=== PATIENT | female | born 1935 | race Caucasian/White ===

== ENCOUNTER → 2017-04-29 | Outpatient (CLI) | payer MEDICARE | END | disposition home or self-care (01) | LOC: RAD 13:04 | DX: Z13.820 Encounter for screening for osteoporosis (principal); N95.9 Unspecified menopausal and perimenopausal disorder; M48.56XA Collapsed vertebra, not elsewhere classified, lumbar region, initial encounter for fracture ==

== ENCOUNTER → 2017-07-22 | Outpatient (CLI) | payer MEDICARE ==
[2017-07-15 13:36] VITALS: BP 124/74
[~2017-07-22] MED LIST: CYMBALTA20 M1 PO; Synthroid,Levo50 MCG PO
[2017-07-22 13:36] VITALS: BP 132/71
== END | disposition home or self-care (01) ==
LOC: INJECTION 07-15 03:10
DX: M81.0 Age-related osteoporosis without current pathological fracture (principal)

== ENCOUNTER → 2018-01-27 | Outpatient (CLI) | payer MEDICARE ==
[~2018-01-27] MED LIST changes: +FOLGARD TABLET1 EACH PO; +REMERON15 M2 PO
[2018-01-27 13:17] VITALS: BP 138/62
== END | disposition home or self-care (01) ==
LOC: INJECTION 01-13 13:30
DX: M81.0 Age-related osteoporosis without current pathological fracture (principal)

== ENCOUNTER 2018-03-26 22:38 | Inpatient (IN) | payer MEDICARE ==
[~2018-03-26] VITALS: Ht 153.6 cm; Wt 48.4 kg
--- NOTE | ~2018-03-26 | PR ---
[place], [place] PROGRESS NOTE NAME: SHERIDAN ZUÑIGA UNIT #: [id number] ROOM: 316 DOCTOR: VINH DE LOS SANTOS DO BIRTHDATE: [birth year] DOS: 03/31/2018 CHIEF COMPLAINT: "I have pain in my shoulders." SUMMARY OF VISIT: Patient is an 82-year-old white female who was admitted to the [facility] due to increased depression and thoughts of suicide with voice a plan act while living at [facility]. Patient is currently on hospital day #5 with improved mood today. Today, patient was interviewed in the dining room. She was eating breakfast at that time. She did not appear to be in any form of distress. When asked about her sleep and appetite, she said both have improved. No signs of anxiety were noted during our encounter. She did complain of having shoulder pain and back pain. She states at home she usually uses a chair with upper back support and she was requesting assistance with her back pain. We reassured the patient that we would let PT know regarding her musculoskeletal pain and she voiced understanding. She did not appear as anxious today as she did yesterday. No thoughts of suicidal ideation were voiced by the patient. No signs of psychosis or deya were noted. MENTAL STATUS EXAMINATION: The patient is alert and oriented to self and place. Her mood is trending towards euthymic. Her speech is organized, purposeful and appropriate. Her affect is more appropriate today. Sleep and appetite have normalized. She does continue to have gaps in her short term memory. The patient did not appear as anxious or as depressed today compared to yesterday. She reports sleeping well. No thoughts of suicidal ideation or harm to others were voiced. No signs of deya or hypomania. PLAN: 1. We have increased Namenda to 10 mg b.i.d. 2. Disposition: Patient to be discharged back to [facility] pending on medical and psychiatric status at that time. 3. PT was informed of the patient's shoulder pain. They relayed to me that she did participate in PT this morning. They did note that she was sleepy at that time since she had just woken up; however, they reassured me that no exercises were done that could have aggravated musculoskeletal support. They recommended that we place a pillow under her knees to alleviate her back pain. They stated that they would address this issue further in her next session. They stated they would call with further recommendations at that time. We will continue to engage the patient in individual and ho milieu activity, returning to the least restrictive environment when psychiatrically stable. ADDENDUM BY DR. OLEA 04/09/18 11:15 AM: Above note reviewed. Agree with observations, recommendations, and overall treatment plan. [place], [place] PROGRESS NOTE NAME: SHERIDAN ZUÑIGA UNIT #: [id number] ROOM: [facility] DOCTOR: VINH DE LOS SANTOS DO BIRTHDATE: [birth year] Vinh De Los Santos DO PATY OLEA MD CM:PNABDIEL [id number] T: VINH DE LOS SANTOS DO 04/09/18 1407 RONI [email or web address]
--- NOTE | ~2018-03-26 | PR ---
[place], [place] PROGRESS NOTE NAME: SHERIDAN ZUÑIGA UNIT #: [id number] ROOM: 316 DOCTOR: PATY OLEA MD BIRTHDATE: [birth year] DOS: 04/02/2018 CHIEF COMPLAINT: "Good morning." SUMMARY OF THE VISIT: The patient was interviewed as she was eating cereal in the dining area. She engaged in brief superficial conversation. When I did tell her that she would be more than likely leaving the hospital to return to [facility], she looked rather perplexed and bewildered and did state [facility] with a very questionable tone in her voice. She has been more pleasant and bright. There has been little to no agitation or aggression. There has been little to no mood lability that was present upon admission. She has been sleeping well at night with the current medication regimen and has been eating better. MENTAL STATUS: She is alert and oriented to person, possibly place, not time. Mood does seem to be trending towards euthymia. Affect is more appropriate. There is no deya, hypomania or psychosis. She does process slowly and short term memory remains poor. PLAN: I will renew her p.r.n. Ativan in case she requires intervention. Otherwise, I will maintain her Exelon at 13.3 mg a day, Namenda at 10 mg twice daily, and her Remeron at 15 mg at bedtime to combat the depression. PATY OLEA MD CM:PNTRANS [id number] PATY OLEA MD 04/02/18 2330 interface
--- NOTE | ~2018-03-26 | PR ---
[place], [place] PROGRESS NOTE NAME: SHERIDAN ZUÑIGA UNIT #: [id number] ROOM: 316 DOCTOR: VINH DE LOS SANTOS DO BIRTHDATE: [birth year] DOS: 04/01/2018 CHIEF COMPLAINT: "It's 1900." SUBJECTIVE: Patient is an 82-year-old white female who was admitted to the [facility] due to increased depression and suicidal thoughts with a voice plan while living at [facility]. She is currently on day #6 with improved mood today. She was interviewed this morning in the dining room. Per nursing staff, the patient slept 7 hours. The patient was later interviewed in her room and when asked if she knew the date, she stated that it was 1900. She appeared to be a little confused. Of note, yesterday, the patient was complaining of back pain; however, she did not voice this concern this morning. She did undergo an x-ray of the thoracic spine. 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 Today, the patient appeared to be slightly confused; however, she readily engaged in conversation and she did not voice any concerns. She appeared to be guarded. MENTAL STATUS EXAMINATION: The patient is alert and oriented to self and place. She was unable to accurately state the year. When asked, she said it was "1900." Her affect remains to be guarded. She appears slightly anxious. She does state that her sleep and appetite have improved overall during her admission. She does continue to have gaps in her short term memory, which has continued to be problematic. The patient did not voice any thoughts of suicidal ideation or harm towards others. No signs of deya or hypomania. No signs of auditory or visual hallucinations. PLAN: 1. No changes to be made to psychotropic regimen as the patient seems to be tolerating this well. Sleep and appetite have continued to normalize. 2. The patient's musculoskeletal concerns are being currently addressed by the internal medicine hospitalist team. Thoracic spine x-rays from 03/31/2018 were unremarkable. They were significant; however, for mid to upper thoracic kyphosis with decreased bone mineral density and diffuse degenerative changes compared to previous study and anterior compression deformity at T5 was also noted; however, PT has continued to be working with the patient and she did not voice any musculoskeletal concerns this morning. 3. Disposition. The patient is to be discharged April 03, back to [facility]. Until then, we will continue to engage the patient in individual and ho milieu activity, returning to the least restrictive environment when psychiatrically stable. ADDENDUM BY DR. OLEA 04/09/18 11:15 AM: Above note reviewed. Agree with observations, recommendations, and overall treatment plan. [place], [place] PROGRESS NOTE NAME: SHERIDAN ZUÑIGA UNIT #: [id number] ROOM: [facility] DOCTOR: VINH DE LOS SANTOS DO BIRTHDATE: [birth year] Vinh De Los Santos DO PATY OLEA MD CM:PNTRANS [id number] T: VINH DE LOS SANTOS DO 04/09/18 1408 RONI [email or web address].[email or web address]
--- NOTE | ~2018-03-26 | WRIGHTHP ---
[place], [place] PATIENT HISTORY AND PHYSICAL EXAM NAME: SHERIDAN ZUÑIGA UNIT #: [id number] ROOM: 316 DOCTOR: PATY OLEA MD BIRTHDATE: [birth year] DOS: 03/27/2018 INITIAL PSYCHIATRIC EVALUATION CHIEF COMPLAINT: "I want to go back to [facility]." HISTORY OF PRESENT ILLNESS: This is an 82-year-old white female known to me from her stay at [facility] in [place], [place]. The patient presents here with increased depression with fleeting suicidal thoughts and a voiced plan. The patient states that she has been increasingly despondent and depressed over the last several weeks, worsening in the last several days prior to this admission. She does have a previous suicide attempt in the 80s when she took a handful of sleeping pills. She reports that she is ready to stockpile her medications now in order to end it all, but thought better of it and thought that she could come into the hospital now to get straightened out per her report. She does endorse significant neurovegetative symptoms that include poor sleep and appetite; anergia; anhedonia; hopeless and helpless feelings; crying spells; and inability to cope. PAST MEDICAL HISTORY: Remarkable for hypothyroidism, depression, dementia, osteoporosis. HABITS: The patient is not a cigarette smoker. She does not have any illicit drug use, and she does not consume alcohol. ALLERGIES: She does have ALLERGIES TO SULFA. STRENGTHS: She has good verbal skills. She is ambulatory and has a very supportive family. MENTAL STATUS: She is alert and oriented to person, place, but not necessarily time. Mood does seem to be depressed with some anxious overtones. She endorses multiple neurovegetative symptoms including suicidal thoughts. There is no deya, hypomania or psychosis. Short-term memory has gaps and she does have some processing issues. DIAGNOSIS: Major depression, recurrent, severe. PLAN: I will go ahead and discontinue her Cymbalta in lieu of Remeron 15 mg at bedtime. This was recently started at [facility] and the patient reports that with that she get the best sleep she has had in some time. Given those early benefits, I will restart here and see if this can impact positively on her mood. We will engage her in individual and ho milieu activity, returning back to [facility] or the least restrictive environment when psychiatrically stable. [place], [place] PATIENT HISTORY AND PHYSICAL EXAM NAME: SHERIDAN ZUÑIGA UNIT #: [id number] ROOM: [facility] DOCTOR: PATY OLEA MD BIRTHDATE: [birth year] PATY OLEA MD CM:HISPHYS:PATIENT HISTORY AND PHYSICAL EXAMINATION [id number] PATY OLEA MD 03/27/18 1145 interface
--- NOTE | ~2018-03-26 | PR ---
[place], [place] PROGRESS NOTE NAME: SHERIDAN ZUÑIGA UNIT #: [id number] ROOM: 316 DOCTOR: PATY OLEA MD BIRTHDATE: [birth year] DOS: 03/29/2018 CHIEF COMPLAINT: "Oh Hi, thank you for stopping, am I gonna be able to leave soon." SUMMARY OF THE VISIT: The patient was interviewed as she was sitting eating her breakfast. She stopped and engaged in pleasant conversation with me. She reports that she is sleeping well, eating well and feeling better. She still is very anxious about returning back to [facility] and is homesick for her house there. MENTAL STATUS: She is alert and oriented with time gaps. Mood does seem to be strongly trending towards euthymia. Affect is more appropriate. There is no deya or hypomania. There are no gross psychotic symptoms. Short term memory has gaps, otherwise she is intact. PLAN: I will maximize out the dose of Exelon patch, bringing it to 13.3 mg daily. I will increase Namenda from 5 mg a day to 5 mg twice a day. Continue to engage in individual and ho milieu activity, returning then to the least restrictive environment when psychiatrically stable. PATY OLEA MD CM:PNTRANS [id number] PATY OLEA MD 03/29/18 1323 interface
--- NOTE | ~2018-03-26 | PR ---
[place], [place] PROGRESS NOTE NAME: SHERIDAN ZUÑIGA UNIT #: [id number] ROOM: 316 DOCTOR: PATY OLEA MD BIRTHDATE: [birth year] DOS: 03/28/2018 CHIEF COMPLAINT: "Morning, when do I get to go?" SUMMARY OF THE VISIT: The patient was interviewed as she was resting quietly in bed. She engaged readily in conversation and voiced no complaints. She stated that she slept well, ate a good breakfast and is hoping that she gets to go back to [facility] soon. She could not tell me exactly how long she has been here or exactly what happened that led to her hospitalization. She was vague in most of her responses and simplistic. There was no agitation or aggression noted. MENTAL STATUS: She remains alert and oriented to self, possibly place, not to time. Mood does seem to be trending more towards euthymia. Affect is more appropriate. There is no deya, hypomania or psychosis. She does process information slowly and short-term memory is exceedingly poor. PLAN: I will go ahead and increase Exelon patch from 4.6 to 9.5 mg daily and augment with Namenda 5 mg a day. Continue to engage in individual and ho milieu activity with the plan to discharge to the least restrictive environment when psychiatrically stable. PATY OLEA MD CM:PNTRANS [phone] [id number] PATY OLEA MD 03/28/182053 interface
--- NOTE | ~2018-03-26 | DS ---
[place], [place] DISCHARGE SUMMARY NAME: SHERIDAN ZUÑIGA UNIT #: [id number] ROOM: 316 DOCTOR: PATY OLEA MD BIRTHDATE: [birth year] DOS: 04/03/2018 CHIEF COMPLAINT: "I want to go back to [facility]." HISTORY OF PRESENT ILLNESS: This is an 82-year-old white female known to me from her stay at [facility] in [place], [place]. The patient presents to the [facility] now with increased depression with fleeting suicidal thoughts and a voiced plan. The patient has been increasingly despondent and more depressed over the last several weeks prior to this admission, worsening in the last several days to the point where she is voiced a suicidal plan to stockpile her medications to end it all or to run into the street to get hit by a car. The patient does have a previous suicide attempt in the when she took a handful of sleeping pills in an attempt to end her life. The patient had endorsed multiple neurovegetative symptoms upon admission including poor sleep and appetite, energy, anhedonia, hopeless, helpless feelings, crying spells, and inability to cope. She is admitted now to the [facility] to rule out any organic factors, to engage in individual and ho milieu activities, returning to the least restrictive environment when psychiatrically stable. PAST MEDICAL HISTORY: Remarkable for hypothyroidism, depression, dementia and osteoporosis. SOCIAL HISTORY: The patient does not smoke cigarettes. She does not use any illicit drugs and she does not consume alcohol. ALLERGIES: She lists allergies to SULFA. STRENGTHS: The patient has good verbal skills. She is ambulatory and has a good support system. SUMMARY OF HOSPITAL COURSE: The patient was admitted to the unit where her Cymbalta was discontinued in lieu of Remeron 15 mg at bedtime. The patient was found to be somewhat confused and disoriented, so she was started simultaneously on Exelon patch 4.6 mg a day and Namenda 5 mg a day. Both of these meds were increased gradually during her stay to its maximum dose of Exelon patch 13.3 mg a day and Namenda 10 mg b.i.d. With the Remeron, the patient did have an almost immediate improvement in her sleep and appetite. She became much more interactive on the unit. She voiced a willingness and a readiness to return back to [facility]. The patient was discharged back to [facility] on 04/03/2018. MENTAL STATUS AT DISCHARGE: She is alert and oriented with time gaps. Mood does seem to be more euthymic. Affect is much more appropriate. Speech rate and pattern is slowed and deliberate but she does have significant processing slowness. Short term memory remains poor. There was no gross psychosis or deya. DIAGNOSIS UPON DISCHARGE: Major depression, recurrent, severe, and Alzheimer's dementia. [place], [place] DISCHARGE SUMMARY NAME: SHERIDAN ZUÑIGA UNIT #: [id number] ROOM: [facility] DOCTOR: PATY OLEA MD BIRTHDATE: [birth year] DISPOSITION: The patient is to return to [facility]. Her prescriptions have been e-scribed to [facility]. Medically, she is stable, psychiatrically she has improved and is stable. Her biopsychosocial needs are adequately being met by the facility at large. PATY OLEA MD CM:DISCHARG [id number] PATY OLEA MD 04/03/18 1237 interface
--- NOTE | ~2018-03-26 | PR ---
[place], [place] PROGRESS NOTE NAME: SHERIDAN ZUÑIGA UNIT #: [id number] ROOM: 316 DOCTOR: VINH DE LOS SANTOS DO BIRTHDATE: [birth year] DOS: 03/30/2018 PSYCHIATRIC PROGRESS NOTE CHIEF COMPLAINT: "I just don't recognize the person in the mirror anymore." SUMMARY OF VISIT: The patient is an 82-year-old white female who was admitted [facility] the [facility] due to increased depression and thoughts of suicide with a voice plan at [facility], which was where she was living prior to admission. She is currently on hospital day #4 with improved mood. Today, she was interviewed in the dining room prior to eating lunch. She was sitting in a chair and did not appear to be in any kind of distress. When asked if her sleep and appetite have improved, she stated "yes they have, however, I still feel a little anxious." When asked if she was feeling depressed or anxious, she said she had some mild anxiety. She also stated that she had a hard time recognizing the person in the mirror. When asked to elaborate on this. She was not forthcoming with an answer. I will continue to investigate this concern of hers to determine if this is related to her current anxiety. When asked if the patient knew the date, she stated that it was 1980. It is unsure when the patient is looking in the mirror if she is expecting to see herself represented as a younger version of herself or if she truly is having difficulty recognizing herself in the mirror. The patient reports improvement in appetite, does not voice thoughts of self-harm or harm towards others. No signs of psychosis, deya or hypomania were noted. MENTAL STATUS EXAMINATION: The patient is alert and oriented to self and place. She is able to accurately identify the [facility] being located in the [facility]. Her mood appears depressed. She does appear slightly anxious. She is able to answer questions and her speech is organized; however, her speech is slow. Her affect is withdrawn and blunted. She reports sleeping well last night; however, she is still experiencing anxiety. She appeared to be guarded and withholding information; however, I will continue to work with the patient on an individual basis to obtain more information about her cognition level. She did believe that it was 1980 and was unable to correctly identify that today 03/30/2018 is a Friday; however, she did state that in group today they had mentioned that today was a special day that occurred every day in the year; however, she was unable to correctly identify that today is . The patient did not voice any other concerns. The patient is medication compliant. No signs of combative behavior were noted on exam. No signs of auditory or visual hallucinations. PLAN: 1. We have increased Namenda to 10 mg q.a.m. and 5 mg at bedtime. 2. The patient is scheduled to return to [facility] upon discharge when medically and psychiatrically stable. Discharge will depend on how patient progresses on current psychotropic regimen. We will continue to engage the patient individually and ho milieu activity, returning to the least restrictive environment when psychiatrically stable. [place], [place] PROGRESS NOTE NAME: SHERIDAN ZUÑIGA UNIT #: [id number] ROOM: [facility] DOCTOR: VINH DE LOS SANTOS DO BIRTHDATE: [address] OLEA 04/09/18 11:15 AM: Above note reviewed. Agree with observations, recommendations, and overall treatment plan. Vinh De Los Santos DO PATY OLEA MD CM:LAILA [id number] T: VINH DE LOS SANTOS DO 04/09/18 1407 RONI HOFFMAN.R
[2018-03-26 22:55] VITALS: BP 164/79; BP 167/79
[2018-03-26] MEDS ORDERED: CYMBALTA30 MG PO (22:57)
[2018-03-26] MEDS ORDERED: CLARITIN10 MG PO (22:57)
[2018-03-26] MEDS ORDERED: MECLIZINE HCL12.5 MG PO (23:07)
[2018-03-27 07:02] LABS: BASO # 0.1 10*3/uL (0.0-0.1); BASO % 0.5 % (0.0-1.0); EOS # 0.4 10*3/uL (0.0-0.4); EOS % 4.4 % (1.0-4.0); HEMOGLOBIN 12.7 g/dl (12.0-16.0); LYMPH # 1.9 10*3/uL (1.3-4.4); LYMPH % 20.9 % (27.0-41.0); MEAN CELL VOLUME 98.7 fl (81.0-99.0); MEAN CORPUSCULAR HGB 32.2 pg (27.0-31.0); MEAN CORPUSCULAR HGB CONC 32.6 g/dl (33.0-37.0); MEAN PLATELET VOLUME 9.4 fl (9.6-12.3); MONO # 0.9 10*3/uL (0.1-1.0); NEUT # 5.9 10*3/uL (2.3-7.9); NEUT % 63.9 % (47.0-73.0); PLATELET COUNT AUTOMATED 498 10*3/uL (130-400); RED BLOOD COUNT 3.95 10*6/uL (4.10-5.10); RED CELL DISTRI WIDTH 14.8 % (0-14.5); WHITE BLOOD COUNT 9.3 10*3/uL (4.8-10.8)
[2018-03-27 07:47] LABS: ALBUMIN 3.6 gm/dl (3.1-4.5); BUN 17 mg/dl (7-24); CHLORIDE 107 mmol/L (98-107); POTASSIUM 3.9 mmol/L (3.5-5.1); SODIUM 142 mmol/L (136-145)
[2018-03-27 08:00] LABS: ALKALINE PHOSPHATASE 48 U/L (45-117); CHOLESTEROL 210 mg/dL (<200); CREATININE 0.78 mg/dL (0.55-1.02); HDL CHOLESTEROL 71 mg/dl (40-60); LDL CHOLESTEROL 120 mg/dL (9-159); SGOT/AST 25 IU/L (3-35); SGPT/ALT 16 U/L (12-78); TOTAL PROTEIN 6.9 gm/dL (6.4-8.2); TRIGLYCERIDES 93 mg/dl (<150); VLDL CHOLESTEROL 19 mg/dL (6-40)
[2018-03-27 08:03] VITALS: BP 150/64
[2018-03-27 08:07] LABS: VITAMIN D, 25-HYDROXY 59.7 ng/mL (30-100)
[2018-03-27 10:03] LABS: BILIRUBIN NEGATIVE (NEGATIVE); BLOOD NEGATIVE (NEGATIVE); CLARITY CLEAR (CLEAR); COLOR YELLOW (YELLOW); GLUCOSE NEGATIVE (NEGATIVE); KETONE NEGATIVE (NEGATIVE); LEUKO ESTERASE 1+ (NEGATIVE); NITRITE NEGATIVE (NEGATIVE); PH 7.5 (5.0-9.0); UROBILINOGEN 0.2 E.U./dl (0.2-1.0)
[2018-03-27 10:16] LABS: BACTERIA 1+; EPITHELIAL CELLS 0-2
[2018-03-27 19:58] VITALS: BP 147/84
[2018-03-28 08:08] VITALS: BP 133/59
[2018-03-28 20:00] VITALS: BP 144/88
[2018-03-29 07:58] VITALS: BP 135/69
[2018-03-29 20:00] VITALS: BP 119/65
[2018-03-30 07:41] VITALS: BP 120/64
[2018-03-30 20:00] VITALS: BP 119/68
[2018-03-31 07:43] VITALS: BP 124/68
[2018-03-31 19:58] VITALS: BP 130/79
[2018-04-01 07:50] VITALS: BP 113/72
[2018-04-01 20:00] VITALS: BP 137/77
[2018-04-02 08:03] VITALS: BP 134/76
[2018-04-02 20:00] VITALS: BP 147/66
[2018-04-03 08:46] VITALS: BP 119/55
[2018-04-03] MEDS ORDERED: EXELON13.3 MG/21 T (09:25)
[2018-04-03] MEDS ORDERED: MEMANTINE HCL10 MG PO (09:25)
[2018-04-03] MEDS ORDERED: MIRTAZAPINE15 M2 PO (09:25)
[2018-04-03] MEDS ORDERED: RIVASTIGMINE TAR6 M1 PO (13:03)
== END 2018-04-03 14:18 | disposition home or self-care (01) | DRG 885 ==
LOC: 3N 22:38
PROVIDERS: Psychiatry & Neurology Psychiatry
DX: F33.2 Major depressive disorder, recurrent severe without psychotic features (principal); G30.9 Alzheimer's disease, unspecified; F02.80 Dementia in other diseases classified elsewhere, unspecified severity, without behavioral disturbance, psychotic disturbance, mood disturbance, and anxiety; R45.851 Suicidal ideations; E03.9 Hypothyroidism, unspecified; M81.0 Age-related osteoporosis without current pathological fracture; Z88.2 Allergy status to sulfonamides; Z88.1 Allergy status to other antibiotic agents; Z79.899 Other long term (current) drug therapy

== ENCOUNTER 2018-04-04 00:10 | Emergency (ER) | payer MEDICARE ==
[~2018-04-04] VITALS: Ht 162.5 cm; Wt 68.0 kg
[~2018-04-04 00:10] MED LIST changes: +CLARITIN10 MG PO; +CYMBALTA30 MG PO; +EXELON13.3 MG/21 T; +MECLIZINE HCL12.5 MG PO; +MEMANTINE HCL10 MG PO; +MIRTAZAPINE15 M2 PO; +RIVASTIGMINE TAR6 M1 PO
[2018-04-04 00:37] LABS: HEMATOCRIT 41.5 % (37.0-47.0); HEMOGLOBIN 13.4 g/dl (12.0-16.0); MEAN CORPUSCULAR HGB CONC 32.3 g/dl (33.0-37.0); MEAN PLATELET VOLUME 9.6 fl (9.6-12.3); PLATELET COUNT AUTOMATED 449 10*3/uL (130-400); RED BLOOD COUNT 4.19 10*6/uL (4.10-5.10); RED CELL DISTRI WIDTH 14.8 % (0-14.5); WHITE BLOOD COUNT 26.2 10*3/uL (4.8-10.8)
[2018-04-04 00:46] LABS: ACT PARTIAL THROMBO TIME 23.3 SECONDS (20.8-31.5)
[2018-04-04 00:55] LABS: ALBUMIN 3.9 gm/dl (3.1-4.5); ALKALINE PHOSPHATASE 63 U/L (45-117); BUN 25 mg/dl (7-24); CHLORIDE 108 mmol/L (98-107); CREATININE 1.06 mg/dL (0.55-1.02); POTASSIUM 3.4 mmol/L (3.5-5.1); SGOT/AST 31 IU/L (3-35); SGPT/ALT 23 U/L (12-78); SODIUM 142 mmol/L (136-145); TOTAL PROTEIN 7.5 gm/dL (6.4-8.2)
[2018-04-04 00:58] LABS: TROPONIN I < 0.015 ng/ml (<0.045)
[2018-04-04 01:07] LABS: PLATELET SUFFICIENCY NORMAL (NORMAL); TOTAL CELLS COUNTED 100 #CELLS
== END 2018-04-04 01:30 | disposition short-term general hospital (02) ==
LOC: ED 00:10
PROVIDERS: Emergency Medicine Emergency Medical Services
DX: I63.9 Cerebral infarction, unspecified (principal); E03.9 Hypothyroidism, unspecified; F03.90 Unspecified dementia, unspecified severity, without behavioral disturbance, psychotic disturbance, mood disturbance, and anxiety; F32.9 Major depressive disorder, single episode, unspecified; M81.0 Age-related osteoporosis without current pathological fracture; Z79.899 Other long term (current) drug therapy; Z88.2 Allergy status to sulfonamides